=== PATIENT | female | born 1965 | race Hispanic/Latino ===

== ENCOUNTER → 2023-08-17 | Outpatient (CLI) | payer OTHER ==
[2023-08-17 15:56] LABS: INR < 0.93 (0.85-1.15); PROTHROMBIN TIME 10.3 SEC (9.6-11.6)
[2023-08-17 16:02] LABS: % IRON SATURATION 18.7 % (22-44)
[2023-08-17 16:11] LABS: CREATININE 0.8 mg/dL (0.5-1.5)
[2023-08-20 06:13] LABS: HEPATITIS A ANTIBODY IGM Negative (Negative); HEPATITIS B CORE IGM Negative (Negative); HEPATITIS Bs ANTIGEN SCREEN P Negative (Negative); HEPATITIS C VIRUS ANTIBODY Non Reactive (Non Reactive)
[2023-08-21 16:11] LABS: ALPHA-1-ANTITRYPSIN 164 mg/dL (101-187)
== END | disposition home or self-care (01) ==
LOC: LAB 14:36
PROVIDERS: ATTEND Internal Medicine Gastroenterology
DX: Z01.812 Encounter for preprocedural laboratory examination (principal); C49.A3 Gastrointestinal stromal tumor of small intestine; R74.9 Abnormal serum enzyme level, unspecified; R93.3 Abnormal findings on diagnostic imaging of other parts of digestive tract
CPT/HCPCS: 36415; 82103; 82104; 82390; 82565; 82728; 83540; 83550; 84520; 85610; 85730; 86015; 86038; 86215; 86235; 86316; 86376; 86381; 86705; 86709; 87340